=== PATIENT | male | born 1995 | race Caucasian/White ===

== ENCOUNTER 2017-01-07 09:47 | Inpatient (IN) | payer BC, OTHER ==
[~2017-01-07] VITALS: Ht 177.8 cm; Wt 72.6 kg
[2017-01-07] MEDS ORDERED: LOPERAMIDE HCL 2 MG CAPSULE PO PRN ×2 (19:15)
[2017-01-07] MEDS ORDERED: ONDANSETRON ODT 4 MG TAB.RAPDIS SL PRN (19:15)
[2017-01-07] MEDS ORDERED: IBUPROFEN 400 MG TABLET PO PRN (19:15)
[2017-01-07] MEDS ORDERED: DICYCLOMINE HCL 20 MG TABLET PO PRN (19:15)
[2017-01-07] MEDS ORDERED: THIAMINE HCL 200 MG/2 ML VIAL IM ONE (19:15)
[2017-01-07] MEDS ORDERED: LORAZEPAM 1 MG TABLET PO PRN ×2 (19:15)
[2017-01-07] MEDS ORDERED: ACETAMINOPHEN 325 MG TABLET PO PRN (19:15)
[2017-01-07] MEDS ORDERED: CLONIDINE HCL 0.1 MG TABLET PO PRN (19:15)
[2017-01-07] MEDS ORDERED: ONDANSETRON 4 MG/2 ML VIAL IM PRN (19:15)
[2017-01-07] MEDS ORDERED: MAGNESIUM HYDROXIDE 30 ML LIQUID UDC PO PRN (19:15)
[2017-01-07] MEDS ORDERED: MIRALAX 17 GM POWD.PACK PO PRN (19:15)
[2017-01-07] MEDS ORDERED: MAG HYDROX/AL HYDROX/SIMETH 30 ML LIQUID UDC PO PRN (19:15)
[2017-01-07] MEDS ORDERED: LORAZEPAM 2 MG/1 ML VIAL IM PRN (19:15)
--- NOTE | 2017-01-07 19:30 | NUR ---
Pre admission note Pt assessed in intake office. Pt does not appear intoxicated at this time. V/S WNL. Policies on medication disposal explained to and understood by patient. Will admit patient to unit.
[2017-01-07 19:51] LABS: *AMPHETAMINE, URINE NEGATIVE (NEGATIVE); *BARBITURATE, URINE NEGATIVE (NEGATIVE); *CANNABINOID, URINE NEGATIVE (NEGATIVE); *COCCAINE, URINE NEGATIVE (NEGATIVE); *OPIATE, URINE NEGATIVE (NEGATIVE); *PHENCYCLIDINE SCREEN,URINE NEGATIVE (NEGATIVE); BASOPHILS # (AUTO) 0.1 K/uL (0.0-8.0); EOSINOPHILS # (AUTO) 0.1 K/uL (0.0-0.7); EOSINOPHILS % (AUTO) 1.3 % (0.0-7.0); HEMOGLOBIN 15.9 G/DL (14.0-18.0); LYMPHOCYTES # (AUTO) 2.3 K/UL (0.8-4.8); LYMPHOCYTES % (AUTO) 34.1 % (20.5-51.5); MEAN CORPUSCULAR HEMOGLOBIN 27.7 UUG (27.0-31.0); MEAN CORPUSCULAR HGB CONC 33 g/dL (32.0-37.0); MEAN CORPUSCULAR VOLUME 83.3 FL (82.0-92.0); MONOCYTES # (AUTO) 0.5 K/UL (0.1-1.30); MONOCYTES % (AUTO) 7.4 % (0.0-11.0); NEUTROPHILS # (AUTO) 3.8 K/UL (1.8-8.9); NEUTROPHILS % (AUTO) 56.2 % (38.5-71.5); PLATELET COUNT (AUTO) 338 K/UL (150-450); RED BLOOD CELL COUNT(AUTO) 5.76 MIL/UL (4.7-6.1); WHITE BLOOD COUNT (AUTO) 6.8 K/UL (4.0-11.2)
[2017-01-07 19:52] LABS: ALANINE AMINOTRANSFERASE 23 U/L (16-63); ALKALINE PHOSPHATASE 78 U/L (50-136); ASPARTATE AMINOTRANSFERASE 14 U/L (15-37); BILIRUBIN,TOTAL 0.5 mg/dL (0.2-1.0); CARBON DIOXIDE 30 mmol/L (21-32); CHLORIDE 99 mmol/L (98-107); CREATININE 1.1 mg/dL (0.6-1.3); GLUCOSE 132 mg/dL (74-106); MAGNESIUM 1.9 mg/dL (1.8-2.4); POTASSIUM 3.5 mmol/L (3.5-5.1); UREA NITROGEN, BLOOD 13 mg/dL (7-18)
[2017-01-07 19:55] LABS: ETHANOL < 3 MG/DL (0-0)
--- NOTE | 2017-01-07 20:15 | NUR ---
Admission note Pt is a 21 yo male, A+Ox4, presenting to [facility] for Benzo dependence. Pt has Allergies to Keflex, is on Full Code status, and on Regular diet. Pt is 5'10" in height and 175 LBS in weight. Pt has Medical HX of Anxiety and Mood disorder. Pt has family HX of Heart disease, Substance abuse, and Alcohol dependence from father. Pt has no primary care provider. Pt has been taking Xanax PO for 6 years, has reached a rate of 3mg-9mg 3x/week, and last dose was 3mg on 01-05-17. Pt has been smoking K2/spice for 9 years, has reached a level of 5gm-6gm/daily, and last dose was 5gm-6gm on 01-05-17. Pt has been taking home medications as follows: Buspar 15mg TID, Gabapentin 300mg TID, Fenofibrate 134mg QHS, and Abilify 5mg QD. Pt has HX of previous detox/rehab for 30 days in [place], [place] in March 2016. Pt continued sobriety for 8 months until November 2016. This was the Patients last time sober. Pt has been smoking cigarettes for 9 years and has reached a rate of 20/daily. Pt is stable at this time with V/S WNL. No s/s of distress noted at this time. Will continue to monitor. Addendum: 01/08/17 at 0631 by CHAO DOYLE LVN 160 LBS in weight
[2017-01-07 20:27] VITALS: BP 122/66
[2017-01-07] MEDS ORDERED: ARIP5TAB10 PO (20:31)
[2017-01-07] MEDS ORDERED: GABA-534 PO (20:31)
[2017-01-07] MEDS ORDERED: FENO134C PO (20:31)
[2017-01-07] MEDS ORDERED: BUSP15TA3 PO (20:31)
[2017-01-07] MEDS: GABAPENTIN 300 MG CAPSULE PO SCH (21:00)
[2017-01-07] MEDS ORDERED: PATIENT MAY USE OWN MED- MD OK PO SCH (21:00)
[2017-01-08 00:12] VITALS: BP 105/54
[2017-01-08 04:12] VITALS: BP 110/61
--- NOTE | 2017-01-08 07:02 | NUR ---
End of shift note Pt is a 21 yo male, A+Ox4, presenting to [facility] for Benzo dependence. Pt has Allergies to Keflex, is on Full Code status, and on Regular diet. Pt is on Fall precautions. Pt has HX of Anxiety and Mood disorder. Pt is on PRN medications. Pt slept for a total of 6 HRS. Last CIWA: 2 @0400. No s/s of distress noted at this time. Respirations even and unlabored. Will endorse to day shift nurse.
[2017-01-08 08:01] VITALS: BP 119/64
--- NOTE | 2017-01-08 08:05 | NUR ---
START OF SHIFT: RECEIVED PT A/O X 4. HE STATES HE SLEPT WELL LAST NIGHT. HE REPORTS SOME MILD ANXIETY AND RESTLESSNESS AND DENIES PAIN. CIWA 1. HE REMAINS ON OBSERVATION WITH PRN ATIVAN AVAILABLE IF NEEDED. PPD PLANTED TO [facility]. EDUCATED PT ON MEDS AND SIDE EFFECTS. PT EXPRESSED VERBAL UNDERSTANDING OF EDUCATION. WILL CONTINUE TO MONITOR AND PROVIDE SAFE AND SUPPORTIVE ENVIRONMENT.
[2017-01-08] MEDS: GABAPENTIN 300 MG CAPSULE PO SCH ×3 (08:25→20:22)
[2017-01-08] MEDS: MULTIVITAMINS,THERAPEUTIC TABLET PO SCH (08:25)
[2017-01-08] MEDS ORDERED: FOLIC ACID 1 MG TABLET PO SCH (09:00)
[2017-01-08] MEDS ORDERED: TUBERCULIN,PURIF.PROT.DERIV. 5 TU/0.1 ML TEST ID ONE (09:00)
[2017-01-08] MEDS ORDERED: THIAMINE HCL 100 MG TABLET PO SCH (09:00)
[2017-01-08] MEDS: busPIRone 5 MG TABLET PO SCH ×3 (10:20→17:26)
[2017-01-08] MEDS: ARIPIPRAZOLE 5 MG TABLET PO SCH (10:20)
[2017-01-08 12:00] VITALS: BP 131/72
[2017-01-08] MEDS ORDERED: LORAZEPAM 1 MG TABLET PO PRN ×2 (13:00)
[2017-01-08 16:00] VITALS: BP 129/89
--- NOTE | 2017-01-08 16:10 | NUR ---
1600 MEDS HELD PT WAS ASLEEP. CIWA DEFERRED.
--- NOTE | 2017-01-08 18:45 | NUR ---
END OF SHIFT: PT CONTINUES ON OBSERVATION LEVEL OF CARE. NO PRNS NEEDED TODAY. HE HAD SOME MILD ANXIETY BUT DENIED S/S OF W/D. PPD PLANTED TO [facility]. HE ATTENDED GROUPS AND ACTIVITIES AND INTERACTED WITH PEERS. HE IS COMPLIANT WITH SCHEDULED MEDS. WILL PASS SHIFT REPORT TO ONCOMING NIGHT NURSE.
[2017-01-08 20:00] VITALS: BP 137/80
--- NOTE | 2017-01-08 20:00 | NUR ---
Start of Shift Pt is a 21 year old male admitted for Benzo dependence. Pt reported using Xanax 3mg - 9 mg/weekly and K2/Spice 5 gm - 6 gm/daily, at the rate of 1.5 months. PMH: anxiety and mood disorder. Pt is allergic to Keflex, regular diet, fall precautions and full code. Upon assessment, pt presents with anxiety, reports feeling mild body aches, skin noted with moderate sweat, respirations even/unlabored, denies SOB/chest pain, denies n/v/d, bowel sounds x4, abdomen soft. Safety measures in place, call light within reach, side rails up x2, bed locked and in low position. Will continue to monitor.
[2017-01-08] MEDS: FENOFIBRATE 134 MG PO SCH (20:22)
--- NOTE | 2017-01-08 21:07 | NUR ---
PRN Administration Pt reports headache 12/01, requests relief. Motrin 400mg PRN administered. Safety measures in place, will continue to monitor.
--- NOTE | 2017-01-08 22:07 | NUR ---
PRN Reassessment Upon reassessment, pt reports relief of headache. Motrin effective. Needs met, safety measures in place, will continue to monitor.
[2017-01-08] MEDS: diphenhydrAMINE 50 MG CAPSULE PO PRN (23:25)
--- NOTE | 2017-01-08 23:25 | NUR ---
PRN Administration Pt reports difficulty sleeping - non-pharmacological methods ineffective. Benadryl 50mg PRN administered. Safety measures in place. will continue to monitor.
[2017-01-09] VITALS: BP 118/79
--- NOTE | 2017-01-09 00:25 | NUR ---
PRN Reassessment Upon reassessment, pt is sleeping, no s/s of acute distress noted, respirations even/unlabored. Safety measures in place. Will continue to monitor.
--- NOTE | 2017-01-09 04:00 | NUR ---
Pt refused to be woken up for 0400 Vital Signs CIWA deferred d/t pt sleeping - to assess while pt is awake as ordered. Safety measures in place. Will continue to monitor.
--- NOTE | 2017-01-09 07:00 | NUR ---
End of Shift Pt is a 21 year old male admitted for Benzo dependence. Pt reported using Xanax 3mg - 9 mg/weekly and K2/Spice 5 gm - 6 gm/daily, at the rate of 1.5 months. PMH: anxiety and mood disorder. Pt is allergic to Keflex, regular diet, fall precautions and full code. During shift, pt presented with anxiety, reports feeling mild body aches, skin noted with moderate sweat - scheduled medications administered, CIWA 1. Motrin 400mg PRN administered for headache and Benadryl 50mg PRN administered for sleep, both effective. Pt slept for 6 hours, intake of 1650 ml PO, voids x2 and stool x0 . Safety measures in place, call light within reach, side rails up x2, bed locked and in low position. Endorsed to day shift nurse.
--- NOTE | 2017-01-09 07:05 | NUR ---
Start Of Shift Report received. Pt is a 21 year old male admitted on 01/07/17 for Benzo dependence. Pt reported using Xanax up to 9mg a week. PMH: anxiety and mood disorder. Pt is full code regular diet on fall and seizure precautions. Pt is allergic to Keflex, Pt is currently not on a taper but has PRN medications in case of withdrawal symptoms. Last CIWA 1 at 0400. Pt received PRN Motrin 400mg and Benadryl 50mg medications effective per warehouse supervisor 3rd shift . Pt slept for 6 hours last night. Safety measures in place, call light within reach, side rails up x2, bed locked and in low position. Will continue to monitor and provide care.
[2017-01-09 08:00] VITALS: BP 121/74
[2017-01-09 08:09] LABS: HEPATITIS B SURFACE AG Negative (Negative)
[2017-01-09] MEDS: MULTIVITAMINS,THERAPEUTIC TABLET PO SCH (08:54)
[2017-01-09] MEDS: busPIRone 5 MG TABLET PO SCH ×3 (08:54→17:27)
[2017-01-09] MEDS: GABAPENTIN 300 MG CAPSULE PO SCH ×3 (08:54→20:19)
[2017-01-09] MEDS: ARIPIPRAZOLE 5 MG TABLET PO SCH (08:54)
[2017-01-09 12:00] VITALS: BP 126/71
[2017-01-09] MEDS ORDERED: GABA-534 PO (12:05)
[2017-01-09] MEDS ORDERED: DIPH50CA37 PO (12:05)
[2017-01-09] MEDS ORDERED: IBUP-1953 PO (12:05)
[2017-01-09] MEDS ORDERED: HYDR25CA PO (12:07)
[2017-01-09 13:54] LABS: *AMPHETAMINE, URINE NEGATIVE (NEGATIVE); *BARBITURATE, URINE NEGATIVE (NEGATIVE); *CANNABINOID, URINE NEGATIVE (NEGATIVE); *COCCAINE, URINE NEGATIVE (NEGATIVE); *OPIATE, URINE NEGATIVE (NEGATIVE); *PHENCYCLIDINE SCREEN,URINE NEGATIVE (NEGATIVE)
[2017-01-09 16:00] VITALS: BP 129/76
--- NOTE | 2017-01-09 19:12 | NUR ---
End Of Shift Report given . Pt is a 21 year old male admitted on 01/07/17 for Benzo dependence. Pt reported using Xanax up to 9mg a week. PMH: anxiety and mood disorder. Pt is full code regular diet on fall and seizure precautions. Pt is allergic to Keflex, Pt is currently not on a taper but has PRN medications in case of withdrawal symptoms. VS monitored closely q 4 hours. Withdrawal symptoms were closely monitored. Initial CIWA 3. Patient encouraged adequate PO fluid intake as tolerated. Patient presented with tremors and anxiety during the day. Last CIWA 1. Per patient, Ativan has been helping him with his withdrawal symptoms. Pt ate all of his meals. Total fluid intake for the day [id number] pt had 7 voids and 1 bowel movement. No PRN medications given during the day. Patient encouraged to attend group therapies/sessions to learn new coping skills to recent relapse, patient denies SI/HI. Participated in group and therapy sessions. All needs met and attended.
[2017-01-09 20:00] VITALS: BP 139/93
--- NOTE | 2017-01-09 20:00 | NUR ---
Start of Shift Pt is a 21 year old male admitted for Benzo dependence. Pt reported using Xanax 3mg - 9 mg/weekly and K2/Spice 5 gm - 6 gm/daily, at the rate of 1.5 months. PMH: anxiety and mood disorder. Pt is allergic to Keflex, regular diet, fall precautions and full code. Upon assessment, pt presents with mild anxiety, skin clammy, respirations even/unlabored, denies SOB/chest pain, denies n/v/d, bowel sounds x4, abdomen soft. Pt is scheduled for discharge tomorrow. Safety measures in place, call light within reach, side rails up x2, bed locked and in low position. Will continue to monitor.
[2017-01-09] MEDS: FENOFIBRATE 134 MG PO SCH (20:19)
[2017-01-09] MEDS: diphenhydrAMINE 50 MG CAPSULE PO PRN (23:03)
--- NOTE | 2017-01-09 23:03 | NUR ---
PRN Administration Pt reported feeling nausea, no emesis episodes. Pt also reported difficulty sleeping. Zofran 4mg ODT PRN and Benadryl 50mg PRN administered. Safety measures in place. Will continue to monitor.
[2017-01-10] VITALS: BP 127/82
--- NOTE | 2017-01-10 | NUR ---
PRN Reassessment Pt is sleeping, no s/s of acute distress noted. No reports of emesis. Respirations even/unlabored. BP 127/82, pulse 95, respiration 18, SpO2 97% room air, temp 97.9, no pain 0/10 CIWA deferred d/t pt sleeping, to assess while pt is awake as ordered. Safety measures in place. Will continue to monitor.
--- NOTE | 2017-01-10 07:00 | NUR ---
End of Shift Pt is a 21 year old male admitted for Benzo dependence. Pt reported using Xanax 3mg - 9 mg/weekly and K2/Spice 5 gm - 6 gm/daily, at the rate of 1.5 months. PMH: anxiety and mood disorder. Pt is allergic to Keflex, regular diet, fall precautions and full code. During shift, pt presented with mild anxiety, skin clammy due medications administered, CIWA 1. Zofran 4mg ODT PRN and Benadryl 50mg PRN administered, effective. Pt is scheduled for discharge today. Pt slept for 5 hours, intake of 1645 ml PO, voids x4 and stool x0. Safety measures in place, call light within reach, side rails up x2, bed locked and in low position. Endorsed to day shift nurse.
--- NOTE | 2017-01-10 07:30 | NUR ---
START OF SHIFT Received report from film processing shift supervisor nurse. 21 year old male admitted on 01/10/17 for xanax and k2 spice withdrawals. Pt has completed ordered taper and is medically cleared for discharge. No acute s/s of withdrawals noted throughout shift. V/S remain WNL. Hx of anxiety and mood disorder. Pt is compliant with MD orders and treatment plan. No PRN medications were needed or administered ay night. Pt CIWA is 1. PRN Zofran and Benadryl was administered at night and effective. Pt remains stable. Slept for 10 hours. All needs met at this time. Will continue to monitor.
[2017-01-10 08:45] VITALS: BP 108/68
[2017-01-10] MEDS: GABAPENTIN 300 MG CAPSULE PO SCH (08:55)
[2017-01-10] MEDS: ARIPIPRAZOLE 5 MG TABLET PO SCH (08:55)
[2017-01-10] MEDS: MULTIVITAMINS,THERAPEUTIC TABLET PO SCH (08:56)
[2017-01-10] MEDS: busPIRone 5 MG TABLET PO SCH (08:56)
--- NOTE | 2017-01-10 09:30 | NUR ---
D/C NOTE Pt is A/O x4. V/S remain WNL. Pt denies SI/HI or hallucinations. Pt shows no s/s of acute withdrawal at this time, and is stable. has medically cleared pt for d/c . Education on Hepatitis C, smoking cessation and medication side effects provided. Pt verbalizes understanding. All pt belongings are in belonging bag, including prescriptions, including any home medications. CIWA is 1. Refuses PNU vaccination. Pt is being accompanied by RELATIONSHIP SPECIALIST at this time to be transported to rehab. All needs met.
== END 2017-01-10 09:48 | disposition other institution (70) | DRG 895 ==
LOC: SRC 18:57
PROVIDERS: ADMIT Internal Medicine; ATTEND Internal Medicine
PROC: HZ2ZZZZ Detoxification Services for Substance Abuse Treatment (ICD-10-PCS; principal; 2017-01-07)
PROC: HZ41ZZZ Group Counseling for Substance Abuse Treatment, Behavioral (ICD-10-PCS; 2017-01-08)
DX: F13.230 Sedative, hypnotic or anxiolytic dependence with withdrawal, uncomplicated (principal); F41.1 Generalized anxiety disorder; F17.210 Nicotine dependence, cigarettes, uncomplicated; Z82.49 Family history of ischemic heart disease and other diseases of the circulatory system; Z81.3 Family history of other psychoactive substance abuse and dependence; E78.1 Pure hyperglyceridemia; F39 Unspecified mood [affective] disorder; F12.19 Cannabis abuse with unspecified cannabis-induced disorder; Z79.899 Other long term (current) drug therapy
CPT/HCPCS: 36415; 70030-TC; 80307; 83735; 85025; 86580; 86592; 86705; 86803; 87340; 87806; A4663; G0480; Q0162; Q0163